=== PATIENT | female | born 1950 | race Caucasian/White ===

== ENCOUNTER → 2017-04-18 | Outpatient (CLI) | payer OTHER ==
[~2017-04-18] MED LIST: AMLODIPINE BESY10 MG PO; ASPIRIN81 M2 PO; GLUCOPHAGE XR750 MG PO; HYDROCODONE-AP1 EAC6 PO; LOPRESSOR50 MG PO; LOTENSIN40 MG PO; LOVASTATIN 20 M20 MG PO; OMEGA-31000 M1 PO; TUMS PO
--- NOTE | ~2017-04-18 | EKG ---
[address] [address] ELECTROCARDIOGRAM REPORT Name: BAL PRESTON Room #: REG CLI [facility]#: [id number] Admission: 04/18/17 Attend Phys: Ned Barahona MD Discharge: Date of : 48 Report #: [id number] THIS REPORT FOR: //name// [facility] Test Date: 2017-04-18 Test Time: 08:34:05 Pat Name: BAL PRESTON Department: Room: Gender: F [employer]: MIRNA : 1950 Requested By: Ned Barahona Order Number: [id number] MD: Corey Simmons Measurements Intervals [place] Rate: 56 P: 40 NE: 151 QRS: 58 QRSD: 111 T: 31 QT: 411 QTc: 397 Interpretive Statements Sinus rhythm Normal tracing No previous ECG available for comparison Electronically Signed On 04-22-2017 12:53:51 CDT by Corey Simmons [email or web address] <ELECTRONICALLY SIGNED> By: Corey Simmons MD, [facility] 04/22/17 1253 0834 0834 Corey Simmons MD, FACC /EPI
== END | disposition home or self-care (01) ==
LOC: LITH 08:04
DX: N20.1 Calculus of ureter (principal); I10 Essential (primary) hypertension; E78.00 Pure hypercholesterolemia, unspecified; E11.9 Type 2 diabetes mellitus without complications; Z98.890 Other specified postprocedural states; Z79.899 Other long term (current) drug therapy